=== PATIENT | female | born 1955 | race Caucasian/White ===

== ENCOUNTER 2016-06-12 13:48 | Emergency (ER) | payer OTHER ==
--- NOTE | 2016-06-12 14:15 | PDOC ---
History of Present Illness - General History Source: Patient Exam Limitations: No Limitations - History of Present Illness Initial Comments: 06/12/16 14:42 <Valeria Luna - Last Filed: 06/12/16 16:35> <Britney Polanco - Last Filed: 06/12/16 20:13> - General History Source: Patient Exam Limitations: No Limitations - History of Present Illness Initial Comments: 06/12/16 17:34 The patient is a 61-year-old woman with a significant past medical history of hypertension, diabetes mellitus, hypercholesterolaemia and gastroesophageal reflux disease who was sent in by her PMD, Dr. Toro Tamez to rule out CVA today. The patient has been complaining of 3 months of left sided hand pain and tingling sensations, 2 weeks of left upper arm pain and 3 days of left sided neck pain that is worse with certain movements. She also reports associated weakness. She denies nausea, vomiting, fever, chills, headache, chest pain, palpitations, leg swelling, leg weakness, abdominal pain, back pain. Patient works as a electronics repair technician. Allergies: None Known Past Surgical History: None reported Social History: She denies tobacco, ETOH and recreational drug use. Primary Care Physician: Dr. Toro Tamez [phone] <Valdemar Saldana - Last Filed: 06/13/16 09:46> - General Stated Complaint: TIA/CVA Time Seen by Provider: 06/12/16 14:04 Past History <Valeria Luna - Last Filed: 06/12/16 16:35> <Britney Polanco - Last Filed: 06/12/16 20:13> - Past Medical History Diabetes: Yes GI Disorders: Yes (H.PYLORI;CONGENITAL ANOMALY OF INTESTINAL TRACT;COLON POLYPS; GERD) HTN: Yes (NO MEDICATION) Hypercholesterolemia: Yes Liver Disease: (CHRONIC NONALCOHOLIC LIVER DS;LIVER CYST) - Psycho/Social/Smoking Cessation Hx Suicidal Ideation: No Smoking History: Never smoked Have you smoked in the past 12 months: No Hx Alcohol Use: No Drug/Substance Use Hx: No Substance Use Type: None <Valdemar Saldana - Last Filed: 06/13/16 09:46> - Past Medical History Allergies/Adverse Reactions: Allergies Allergy/AdvReac Type Severity Reaction Status Date / Time No Known Allergies Allergy Verified 04/29/15 14:41 Home Medications: Ambulatory Orders NK [No Known Home Medication] 04/29/15 Review of Systems - Review of Systems Able to Perform ROS?: Yes Comments:: 06/12/16 14:42 <Valeria Luna - Last Filed: 06/12/16 16:35> - Review of Systems Able to Perform ROS?: Yes Comments:: 06/12/16 17:35 CONSTITUTIONAL: No reported: Fever, Chills, Diaphoresis, Generalized Weakness, Malaise, Loss of Appetite HEENT: No reported: Rhinorrhea, Nasal Congestion, Throat Pain, Throat Swelling, Difficulty Swallowing, Mouth Swelling, Ear Pain, Eye Pain, Visual Changes CARDIOVASCULAR: No reported: Chest Pain, Syncope, Palpitations, Irregular Heart Rate, Lightheadedness, Peripheral Edema RESPIRATORY: No reported: Cough, Shortness of Breath, SOB with Exertion, Orthopnea, Wheezing , Stridor, Hemoptysis GASTROINTESTINAL: No reported: Abdominal pain, Abdominal Distension, Nausea, Vomiting, Diarrhea, Constipation, Melena, Hematochezia GENITOURINARY: No reported: Dysuria, Frequency, Urgency, Hesitancy, Flank Pain, Genital Pain MUSCULOSKELETAL: Reported: +Neck Pain/ No reported: Myalgia, Arthralgia, Joint Swelling, Back pain, SKIN: No reported: Rash, Itching, Pallor HEMEATOLOGIC/IMMUNOLOGIC: No reported: Easy Bleeding, Easy Bruising, Lymphadenopathy, Frequent infections ENDOCRINE: No reported: Unexplained Weight Gain, Unexplained Weight Loss, Heat Intolerance , Cold Intolerance NEUROLOGIC: Reported: Headache. Weakness. Paresthesias. No reported: , Vertigo, Lightheadedness, Unsteady Gait, Seizure, Mental Status Changes, Incontinence PSYCHIATRIC: No reported: Anxiety, Depression <Valdemar Saldana - Last Filed: 06/13/16 09:46> *Physical Exam - Vital Signs Last Vital Signs Temp Pulse Resp BP Pulse Ox 97.8 F 87 18 148/90 100 06/12/16 14:00 06/12/16 14:00 06/12/16 14:00 06/12/16 14:00 06/12/16 14:00 - Physical Exam Comments: 06/12/16 14:42 <Valeria Luna - Last Filed: 06/12/16 16:35> - Vital Signs Last Vital Signs Temp Pulse Resp BP Pulse Ox 97.8 F 87 18 148/90 100 06/12/16 14:00 06/12/16 14:00 06/12/16 14:00 06/12/16 14:00 06/12/16 14:00 <Britney Polanco - Last Filed: 06/12/16 20:13> - Physical Exam Comments: 06/12/16 14:18 GENERAL: The patient is awake, alert, and fully oriented, Nontoxic - in no acute distress. HEAD: Normocephalic, atraumatic. EYES: extraocular movements intact, sclera anicteric, conjunctiva clear. ENT: Normal voice, Moist mucous membranes. NECK: Normal range of motion, supple LUNGS: Breath sounds equal, clear to auscultation bilaterally. No wheezes, no rhonchi, no rales. HEART: Regular rate and rhythm, normal S1 and S2 without murmur, rub or gallop. ABDOMEN: Soft, nontender, normoactive bowel sounds. No guarding, no rebound. No CVA tenderness EXTREMITIES: Normal range of motion, no edema. No clubbing or cyanosis. No cords, erythema, or tenderness. NEUROLOGICAL: No facial assymetry, Normal speech, +spurlings test on LUE. PSYCH: Normal mood, normal affect. SKIN: Warm, Dry, normal turgor, <Valdemar Saldana - Last Filed: 06/13/16 09:46> Heart Score/ECG Review - ECG Impressions Comment:: 06/12/16 17:35 Twelve-lead EKG was performed and reviewed by me. There is normal sinus rhythm with a normal rate. Rate of 79 Nonspecific T wave abnormality QTc interval of 465. <Valdemar Saldana - Last Filed: 06/13/16 09:46> ED Treatment Course - LABORATORY CBC & Chemistry Diagram: 06/12/16 14:18 06/12/16 14:18 - RADIOLOGY Radiograph Interpretation: 06/12/16 16:36 EXAM: CT/HEAD CT WITHOUT CONTRAST IMPRESSION: A noncontrast CT scan of the brain was performed. There is mild volume loss and ventricular dilatation. Minimal periventricular chronic microvascular ischemic changes are present. No mass lesion, gross acute infarct or intracranial hemorrhage is seen. Visualized paranasal sinuses and mastoid air cells are well-aerated. The calvarium is intact. - Medications Given in the ED: ED Medications Discontinued Medications Generic Name Dose Route Start Last Admin Trade Name Freq PRN Reason Stop Dose Admin Aspirin 162 mg 06/12/16 14:16 06/12/16 14:28 Asa - PO 06/12/16 14:17 162 mg ONCE ONE Administration <LunaValeria robertson - Last Filed: 06/12/16 16:35> - LABORATORY CBC & Chemistry Diagram: 06/12/16 14:18 06/12/16 14:18 - ADDITIONAL ORDERS Additional order review: Laboratory Results 06/12/16 06/12/16 14:18 14:18 INR 1.04 Sodium 140 Potassium 4.0 Chloride 105 Carbon Dioxide 20 L D Anion Gap 15 BUN 16 D Creatinine 0.5 L Creat Clearance w eGFR > 60 Random Glucose 108 H Calcium 9.2 Total Bilirubin 0.8 AST 25 D ALT 31 D Alkaline Phosphatase 109 Creatine Kinase 88 Troponin I < 0.02 Total Protein 7.7 Albumin 4.0 06/12/16 14:18 RBC 4.92 MCV 85.8 MCHC 34.1 RDW 12.9 MPV 7.9 Neutrophils % 67.1 D Lymphocytes % 23.2 D Monocytes % 5.9 Eosinophils % 2.3 Basophils % 1.5 - Medications Given in the ED: ED Medications Discontinued Medications Generic Name Dose Route Start Last Admin Trade Name Freq PRN Reason Stop Dose Admin Acetaminophen 650 mg 06/12/16 14:32 06/12/16 17:15 Tylenol - PO 06/12/16 14:33 650 mg ONCE ONE Administration Aspirin 162 mg 06/12/16 14:16 06/12/16 14:28 Asa - PO 06/12/16 14:17 162 mg ONCE ONE Administration <Britney Polanco - Last Filed: 06/12/16 20:13> - LABORATORY CBC & Chemistry Diagram: 06/12/16 14:18 06/12/16 14:18 <Valdemar Saldana - Last Filed: 06/13/16 09:46> Medical Decision Making - Medical Decision Making 06/12/16 14:20 61y F hx of htn, dm, hl, presents with LUE arm pain/shoulder pain, 6 months of L hand pain/tingling, 2 weeks L shoulder pain, 3 days of neck pain. worsens with +spurlings maneuver, slight weakness appreciated with elbow flexion on of LUE will obtain ct neck to r/o radiculopathy. will obtain blood work and will give meds for pain control 06/12/16 17:20 case signed out to dr. polanco suspect radiculopathy, awaiting her CT cspine results. <Valdemar Saldana - Last Filed: 06/13/16 09:46> *DC/Admit/Observation/Transfer - Attestations Scribe Attestion: 06/12/16 14:42 Documentation prepared by Valeria Luna, acting as medical social worker for Valdemar Saldana MD. <Valeria Luna - Last Filed: 06/12/16 16:35> <Britney Polanco - Last Filed: 06/12/16 20:13> <Valdemar Saldana - Last Filed: 06/13/16 09:46> Diagnosis at time of Disposition: Arm pain Qualifiers: Laterality: bilateral Qualified Code(s): M79.601 - Pain in right arm - Discharge Dispostion Disposition: HOME Condition at time of disposition: Stable - Referrals Referrals: Toro Tamez MD [Primary Care Provider] - - Patient Instructions Printed Discharge Instructions: DI for Cervical Radiculopathy Additional Instructions: please call your doctor for an appointment for further evaluation and treatment of your arm pain
[2016-06-12] MEDS ORDERED: ASPIRIN 81 MG CHEWABLE TABLETS PO ONE (14:16)
[2016-06-12] MEDS ORDERED: ACETAMINOPHEN 325 MG TABLET (FP) PO ONE (14:32)
[2016-06-12 14:41] VITALS: TEMP 97.8; BMI 23.0
[2016-06-12 15:05] LABS: BASOPHIL 1.5 % (0-2.0); EOSINOPHIL 2.3 % (0-4.5); MCH 29.3 pg (25.7-33.7); MCHC 34.1 g/dl (32.0-36.0); MEAN CELL VOLUME 85.8 fl (80-96); MEAN PLT VOLUME 7.9 fl (7.5-11.1); NEUTROPHILS 67.1 % (42.8-82.8); PLATELET COUNT 277 K/MM3 (134-434); RDW 12.9 % (11.6-15.6); WHITE BLOOD COUNT 7.6 K/mm3 (4.0-10.0)
[2016-06-12 15:42] LABS: ALK PHOS 109 U/L (45-117); ANION GAP 15 (8-16); BILIRUBIN,TOTAL 0.8 mg/dL (0.2-1.0); CALCIUM 9.2 mg/dL (8.5-10.1); CO2 20 mmol/L (21-32); CREATININE 0.5 mg/dL (0.55-1.02); GLUCOSE,RANDOM 108 mg/dL (74-106); SGOT/AST 25 U/L (15-37); SGPT/ALT 31 U/L (12-78); TOT PROT 7.7 g/dl (6.4-8.2); TROPONIN I < 0.02 ng/ml (0.00-0.05)
[2016-06-12 15:51] LABS: INR 1.04 (0.82-1.09); PROTHROMBIN TIME (PATIENT) 11.4 SEC (9.98-11.88)
[2016-06-12] MEDS ORDERED: ACETAMINOPHEN 325 MG TABLET (FP) ONE (17:43)
[2016-06-12] MEDS ORDERED: ASPIRIN 81 MG CHEWABLE TABLETS ONE (17:44)
[2016-06-12 21:23] VITALS: BP 133/68; PULSE 72
--- NOTE | 2016-06-13 00:19 | EKG ---
Test Reason : Blood Pressure : / mmHG Vent. Rate : 079 BPM Atrial Rate : 079 BPM P-R Int : 144 ms QRS Dur : 082 ms QT Int : 406 ms P-R-T Axes : 043 -11 036 degrees QTc Int : 465 ms NORMAL SINUS RHYTHM NONSPECIFIC T WAVE ABNORMALITY PROLONGED QT ABNORMAL ECG WHEN COMPARED WITH ECG OF 29-APR-2015 14:42, NO SIGNIFICANT CHANGE WAS FOUND Confirmed by HAVEN SINGH MD ([id number]) on 06/13/2016 12:18:57 AM Referred By: Confirmed By:HAVEN SINGH MD
== END 2016-06-12 21:20 | disposition home or self-care (01) ==
LOC: JER 13:48
DX: M54.12 Radiculopathy, cervical region (principal); M48.02 Spinal stenosis, cervical region; I10 Essential (primary) hypertension; E11.9 Type 2 diabetes mellitus without complications; E78.00 Pure hypercholesterolemia, unspecified; K76.89 Other specified diseases of liver
CPT/HCPCS: 36415; 70450-TC; 72125-TC; 80053; 82550; 84484; 85025; 85610; 93005; 93010; 99284-25

== ENCOUNTER 2016-09-29 16:38 | Emergency (ER) | payer OTHER ==
[2016-09-29 16:51] VITALS: BP 174/88; PULSE 87; TEMP 98; BMI 31.2
[2016-09-29] MEDS ORDERED: IBUPROFEN 600 MG TABLET (FP) PO ONE ×2 (17:18→17:21)
--- NOTE | 2016-09-29 17:29 | PDOC ---
History of Present Illness - General Chief Complaint: Injury Stated Complaint: INJURY Time Seen by Provider: 09/29/16 16:57 History Source: Patient Exam Limitations: No Limitations - History of Present Illness Initial Comments: 09/29/16 17:20 Agent status post fall from approximately one to 2 steps from step ladder that collapsed underneath her. States fell backward landing on her back and back of her head. States uncertain as to LOC, but states was unable to move for a few moments, and saw black with some tingling along her arms. Leia called while patient was still on the floor and identified she needed help as she was at home alone. He called his daughter who called 911. Daughter and 911 arrived to home in patient was transported to the emergency department for evaluation. Incident occurred approximately 2 hours before her evaluation here. Since that time, stare or head pain, some neck tenderness along the side musculature, and right ankle pain. Denies any true bony injury, and feels there is been no fractures however is concerned about her headache and head pain. Mental status is within normal limits, she's been appropriate no nausea vomiting , no visual changes, no drainage from nose or ears, no other distracting injuries that are significant. 09/29/16 19:01 Occurred: reports: just prior to arrival, this afternoon Severity: reports: moderate Pain Location: reports: face, head, neck Method of Injury: Yes: direct blow, fall Modifying Factors: improves with: None Loss of Consciousness: unsure Associated Symptoms (Fall): denies symptoms, dizziness, lightheadedness, muscle spasms (to neck ), neck pain Past History - Travel Traveled outside of the country in the last 30 days: No Close contact w/someone who was outside of country & ill: No - Past Medical History Allergies/Adverse Reactions: Allergies Allergy/AdvReac Type Severity Reaction Status Date / Time No Known Allergies Allergy Verified 09/29/16 16:45 Home Medications: Ambulatory Orders Cyclobenzaprine HCl [Flexeril 10 mg] 10 mg PO BID PRN #14 tablet 09/29/16 Diabetes: Yes GI Disorders: Yes (H.PYLORI;CONGENITAL ANOMALY OF INTESTINAL TRACT;COLON POLYPS; GERD) HTN: Yes (NO MEDICATION) Hypercholesterolemia: Yes Liver Disease: (CHRONIC NONALCOHOLIC LIVER DS;LIVER CYST) - Psycho/Social/Smoking Cessation Hx Anxiety: No Suicidal Ideation: No Smoking History: Never smoked Have you smoked in the past 12 months: No Information on smoking cessation initiated: No Hx Alcohol Use: No Drug/Substance Use Hx: No Substance Use Type: None Trauma Specific PMHX - Complaint Specific PMHX Back Injury: No Neck Injury: No Review of Systems - Review of Systems Able to Perform ROS?: Yes Is the patient limited Malawian proficient: Yes Constitutional: Yes: Symptoms Reported, See HPI, Malaise HEENTM: Yes: Symptoms Reported, See HPI. No: Eye Pain, Blurred Vision, Tearing Respiratory: Yes: See HPI. No: Symptoms reported, Cough, Shortness of Breath Musculoskeletal: Yes: Symptoms Reported, See HPI, Joint Pain, Joint Swelling ( right ankle ), Neck Pain (to muscle groups. ) Integumentary: Yes: Symptoms Reported, See HPI, Bruising Neurological: Yes: See HPI, Headache All Other Systems: Reviewed and Negative *Physical Exam - Vital Signs Last Vital Signs Temp Pulse Resp BP Pulse Ox 98.0 F 87 18 174/88 100 09/29/16 16:45 09/29/16 16:45 09/29/16 16:45 09/29/16 16:45 09/29/16 16:45 - Physical Exam General Appearance: Yes: Nourished, Appropriately Dressed, Apparent Distress, Mild Distress, Other (contusion approximately 3 cm to occiput without crepitus or step-offs,) HEENT: positive: EOMI, PAO, Normal ENT Inspection, TMs Normal (no hemotympanum , no drainage from nose or ears, no evidence of skull fracture), Pharynx Normal , Nasal Congestion. negative: Rhinorrhea Neck: positive: Supple, Other (tenderness along the sternocleidomastoid and right supportive muscles to neck. Has no true C-spine tenderness, crepitus or step-offs.). negative: Tender, Tender midline Respiratory/Chest: positive: Lungs Clear, Normal Breath Sounds Cardiovascular: positive: Regular Rhythm Gastrointestinal/Abdominal: positive: Normal Bowel Sounds, Soft. negative: Tender Musculoskeletal: positive: Decreased Range of Motion (to right ankle / no medial or lateral malleolus tenderness/ negative squeeze test), Muscle Spasm ( mild ). negative: Normal Inspection, Vertebral Tenderness Extremity: positive: Normal Capillary Refill, Normal Inspection. negative: Normal Range of Motion, Tender Integumentary: positive: Dry, Warm, Pale. negative: Ecchymosis, Bruising Neurologic: positive: oracle fusion developer II-XII NML intact, Fully Oriented, Alert, Normal Mood/ Affect, Normal Response, Motor Strength /5 Progress Note - Progress Note Progress Note: Status post fall with superficial head injury, multiple contusions. CAT scan negative for pathology or bleed, Right sprained ankle, with acewrtap/aircast applied. Medicated with ibuprofen, will treat with NSAIDs and cyclobenzaprine for mild neck spasm. Have follow-up with PMD/ Ortho as needed *DC/Admit/Observation/Transfer Diagnosis at time of Disposition: Contusion, multiple sites Right ankle sprain Qualifiers: Encounter type: initial encounter Involved ligament of ankle: unspecified ligament Qualified Code(s): S93.401A - Sprain of unspecified ligament of right ankle, initial encounter - Discharge Dispostion Disposition: HOME Condition at time of disposition: Stable Admit: No - Referrals Referrals: Toro Tamez MD [Primary Care Provider] - - Patient Instructions Printed Discharge Instructions: DI for Ankle Sprain, DI for Contusion Additional Instructions: Rest, ice to area on and off for 15 minutes 4-6 times a day Avoid heavy lifting or exercise until pain and swelling is resolved or until further directed Keep area highly elevated to reduce swelling Use splints/Geovany wrap as directed Followup with orthopedist in one to 2 days if not improving, if significantly improved may wait one week for followup with orthopedist May use ibuprofen 2-200 mg tablets every 6 hours as needed for pain - Post Discharge Activity Work/School Note: Back to Work
[2016-09-29] MEDS ORDERED: CYCLOBENZAPRINE HCL 10 MG TABLET (FP) ONE (18:57)
== END 2016-09-29 19:38 | disposition home or self-care (01) ==
LOC: JERFT 16:38
PROC: 2W3LX1Z Immobilization of Right Lower Extremity using Splint (ICD-10-PCS; principal; 2016-09-29)
DX: S93.401A Sprain of unspecified ligament of right ankle, initial encounter (principal); S00.83XA Contusion of other part of head, initial encounter; W11.XXXA Fall on and from ladder, initial encounter; Y93.89 Activity, other specified; Y92.018 Other place in single-family (private) house as the place of occurrence of the external cause
CPT/HCPCS: 70450-TC; 73610-TC-RT; 99281-25